=== PATIENT | male | born 1935 | race Caucasian/White ===

== ENCOUNTER 2022-01-24 17:37 | Emergency (ER) | payer OTHER, MEDICARE ==
--- NOTE | 2022-01-24 18:47 | ERPHSYRPT ---
- History of Present Illness Time Seen by Provider: 01/24/22 18:00 Source: patient Exam Limitations: no limitations Patient Subjective Stated Complaint: C/O Left groin pain, left lower leg pain, and right rib pain after a fall a little before 10am today. Triage Nursing Assessment: Patient came into the ED via wheelchair. He is alert and oriented. Patient has an indentation in his left lower outer leg that he indicates is from his fall this am. Patient's leg length is uneven; his left leg is slightly longer than his right leg. Patient indicates that the leg length difference is not new; states bilateral knee replacements are the cause of the length difference. The Left leg is externally rotated and patient yelled out in pain when nurse attempted to move patient's foot to rotate into a normal position. Pedal pulse is present. Bruising noted to BUE and BLE. Physician History: Patient is an 86-year-old male presents to our ED status post fall. Patient complains of pain to his left leg left groin and right rib. Patient states he is prone to falls due to a chronic leg length discrepancy. Patient states he fe ll at approximately 10 AM. Pain described as an ache that is localized. Left groin pain worse with logroll and abduction of his left leg. No BHT or LOC. No neck pain. Cervical spine cleared clinically. Symptoms are mild to moderate in intensity. Symptoms worsen with movement and palpation. Pain improves with rest. The fall was mechanical per patient. It was not associated with any chest pain or shortness of breath. There is no associated numbness tingling or weakness. Patient voices no other complaints or concerns at this time. Portions of this note were created with voice recognition technology. There may be grammatical, spelling, punctuation or sound alike errors Timing/Duration: today Severity: moderate Modifying Factors: Improves With: nothing Allergies/Adverse Reactions: Penicillins Allergy (Verified 01/24/22 17:52) Hx Tetanus, Diphtheria Vaccination/Date Given: Yes Hx Influenza Vaccination/Date Given: No Hx Pneumococcal Vaccination/Date Given: Yes Immunizations Up to Date: Yes Travel Risk - International Travel Have you traveled outside of the country in past 3 weeks: No - Coronavirus Screening Are you exhibiting any of the following symptoms?: No Close contact with a COVID-19 positive Pt in past 14-21 Days: No - Vaccine Status Have you recieved a Covid-19 vaccination: Yes Neon Glass Blower: Moderna - Vaccination Dates Date of 2cond Vaccination (if applicable): 2020 - Review of Systems Constitutional: No Symptoms, No Fever, No Chills Eyes: No Symptoms Ears, Nose, & Throat: No Symptoms Respiratory: No Symptoms, Other (Tenderness palpation right rib. Overlying soft tissue intact.), No Cough, No Dyspnea Cardiac: No Symptoms, No Chest Pain, No Edema, No Syncope Abdominal/Gastrointestinal: No Abdominal Pain, No Nausea, No Vomiting, No Diarrhea Genitourinary Symptoms: No Dysuria Musculoskeletal: No Back Pain, No Neck Pain Skin: No Rash Neurological: No Dizziness, No Focal Weakness, No Sensory Changes Psychological: No Symptoms Endocrine: No Symptoms All Other Systems: Reviewed and Negative - Past Medical History Pertinent Past Medical History: Yes Neurological History: No Pertinent History ENT History: Cataracts Cardiac History: Hypertension, Myocardial Infarction (RI) Respiratory History: Other Endocrine Medical History: No Pertinent History Musculoskeletal History: Arthritis, Fractures GI Medical History: Hernia Psycho-Social History: Depression Other Medical History: Hammer toe - Past Surgical History Past Surgical History: Yes Gastrointestinal: Hernia Repair Musculoskeletal: Joint Replacement, Orthopedic Surgery Other Surgical History: Skin grafts, carpal tunnel srugery, bilateral knee replacements - Social History Smoking Status: Former smoker Exposure to second hand smoke: No Drug Use: none Patient Lives Alone: No - Nursing Vital Signs Nursing Vital Signs: Initial Vital Signs Temperature 97.6 F 01/24/22 17:53 Pulse Rate 52 L 01/24/22 17:53 Respiratory Rate 18 01/24/22 17:53 Blood Pressure 124/78 01/24/22 17:53 O2 Sat by Pulse Oximetry 94 L 01/24/22 17:53 Pain Scale Pain Intensity 5 - Physical Exam General Appearance: no apparent distress, alert Eye Exam: PERRL/EOMI, eyes nml inspection Ears, Nose, Throat Exam: normal ENT inspection, TMs normal, pharynx normal, moist mucous membranes Neck Exam: normal inspection, non-tender, supple, full range of motion Respiratory Exam: normal breath sounds, lungs clear, airway intact, other (Tenderness palpation right sided ribs. Overlying soft tissue intact.), No respiratory distress Cardiovascular Exam: regular rate/rhythm, normal heart sounds, normal peripheral pulses Gastrointestinal/Abdomen Exam: soft, normal bowel sounds, other (Tenderness to palpation left groin area. No obvious deformity. The involved left lower extremity is neurovascular tact distally.), No tenderness, No mass Back Exam: normal inspection, normal range of motion, No CVA tenderness, No vertebral tenderness Extremity Exam: normal inspection, normal range of motion, pelvis stable, other (Tenderness palpation at the lateral aspect of left leg. Overlying soft tissue intact. Left lower extremity neurovascular intact distally. Compartments are soft. Cap refill less than 2 seconds.) Neurologic Exam: alert, oriented x 3, cooperative, normal mood/affect, nml cerebellar function, nml station & gait, sensation nml, No motor deficits Skin Exam: normal color, warm, dry, No rash Lymphatic Exam: No adenopathy SpO2 Interpretation: normal SpO2: 94 O2 Delivery: Room Air - Course Nursing assessment & vital signs reviewed: Yes EKG Interpreted by Me: RATE (51), Sinus Rhythm, NORMAL AXIS, NORMAL INTERVALS - Radiology Exams Lower Leg X-ray Interpretation: Interpreted by me (No fracture dislocations. Soft tissue swelling lateral mid third leg.) - CT Exams Pelvis CT Interpretation: Tele-radiologist Report (No new acute findings. Compared to CT yesterday) Chest CT Interpretation: Tele-radiologist Report (No comps. Nondisplaced acute right ninth rib fracture. Osteopenia. Old right T10 rib fracture multilevel degenerative disc disease emphysema fibrosis scarring. 6 mm indeterminate left upper lobe noncalcified nodule. Old granulomatous disease. Also old right third rib fracture. And small hiata) Ordered Tests: Active Orders 24 hr Category Date Time Status Drill Press Hand STAT Care 01/24/22 18:39 Active EKG-ER Only STAT Care 01/24/22 18:38 Active IV Insertion STAT Care 01/24/22 18:38 Active Pulse Oximetry (ED) STAT Care 01/24/22 18:38 Active CHEST WITHOUT CONTRAST [CT] Stat Exams 01/24/22 18:40 Taken LOWER LEG Stat Exams 01/24/22 18:42 Taken PELVIS WITHOUT CONTRAST [CT] Stat Exams 01/24/22 18:41 Taken BMP Stat Lab 01/24/22 22:51 Completed CBC W DIFF Stat Lab 01/24/22 19:10 Completed CMP Stat Lab 01/24/22 19:10 Completed TROPONIN Q4H Lab 01/24/22 19:10 Completed TROPONIN Q4H Lab 01/24/22 22:40 Completed TROPONIN Q4H Lab 01/25/22 02:45 Ordered UA W/RFX CULTURE Stat Lab 01/24/22 23:43 Completed Medication Summary Discontinued Medications Generic Name Dose Route Start Last Admin Trade Name Nikky PRN Reason Stop Dose Admin Acetaminophen 975 mg 01/24/22 18:45 01/24/22 19:41 Acetaminophen 325 Mg Tablet PO 01/24/22 18:46 975 mg STAT ONE Administration Acetaminophen Confirm 01/24/22 19:41 Acetaminophen 325 Mg Tablet Administered 01/24/22 19:42 Dose 975 mg .ROUTE .STK-MED ONE Sodium Chloride 1,000 mls @ 999 mls/hr 01/24/22 21:30 01/24/22 21:47 Sodium Chloride 0.9% 1000 Ml IV 01/24/22 22:30 999 mls/hr .Q1H1M STA Administration Sodium Chloride Confirm 01/24/22 21:46 Sodium Chloride 0.9% 1000 Ml Administered 01/24/22 21:47 Dose 1,000 mls @ ud .ROUTE .STK-MED ONE Lab/Rad Data: Laboratory Result Diagrams 01/24/22 19:10 01/24/22 22:51 Laboratory Results 01/24/22 01/24/22 01/24/22 Range/Units 23:43 22:51 22:40 WBC (4.0-10.5) x10^3/uL RBC (4.1-5.6) x10^6/uL Hgb (12.5-18.0) g/dL Hct (42-50) % MCV (78-100) fL MCH (26-32) pg MCHC (32-36) g/dL RDW (11.5-14.0) % Plt Count (150-450) x10^3/uL MPV (7.5-11.0) fL Gran % (36.0-66.0) % Immature Gran % (Auto) (0.00-0.4) % Nucleat RBC Rel Count (0.00-0.1) % Eos # (Auto) (0-0.5) x10^3/uL Immature Gran # (Auto) (0.00-0.03) x10^3u/L Absolute Lymphs (auto) (1.0-4.6) x10^3/uL Absolute Monos (auto) (0.0-1.3) x10^3/uL Absolute Nucleated RBC (0.00-0.01) x10^3u/L Lymphocytes % (24.0-44.0) % Monocytes % (0.0-12.0) % Eosinophils % (0.00-5.0) % Basophils % (0.0-0.4) % Absolute Granulocytes (1.4-6.9) x10^3/uL Basophils # (0-0.4) x10^3/uL Sodium 137 (137-145) mmol/L Potassium 4.6 (3.5-5.1) mmol/L Chloride 102 (98-107) mmol/L Carbon Dioxide 26 (22-30) mmol/L Anion Gap 13.8 (5-15) MEQ/L BUN 32 H (9-20) mg/dL Creatinine 1.88 H (0.66-1.25) mg/dL Estimated GFR 36.2 ML/MIN Glucose 118 H (74-106) mg/dL Calcium 8.8 (8.4-10.2) mg/dL Total Bilirubin (0.2-1.3) mg/dL AST (17-59) U/L ALT (0-50) U/L Alkaline Phosphatase (38-126) U/L Troponin I 0.016 (0.000-0.034) ng/mL Serum Total Protein (6.3-8.2) g/dL Albumin (3.5-5.0) g/dL Urinalys Dipstick Clnc MAIN LAB Urine Color YELLOW (YELLOW) Urine Appearance CLEAR (CLEAR) Urine pH 7.0 (5-6) Ur Specific [place] 1.015 (1.005-1.025) POC Urine Protein Conf 100 (Negative) Urine Ketones NEGATIVE (NEGATIVE) Urine Nitrite NEGATIVE (NEGATIVE) Urine Bilirubin NEGATIVE (NEGATIVE) Urine Urobilinogen 0.2 (0-1) mg/dL Urine Leukocytes NEGATIVE (NEGATIVE) Urine WBC (Auto) 0-2 (0-5) /HPF Urine RBC (Auto) 0-2 (0-2) /HPF U Hyaline Cast (Auto) 3-5 (0-2) /LPF Urine RBC NEGATIVE (0-5) Raman/ul Urine Mucus (Auto) SLIGHT (NEGATIVE) /HPF Ur Culture Indicated? NO Urine Glucose NEGATIVE (NEGATIVE) mg/dL 01/24/22 01/24/22 01/24/22 Range/Units 19:10 19:10 19:10 WBC 7.4 (4.0-10.5) x10^3/uL RBC 3.93 L (4.1-5.6) x10^6/uL Hgb 13.5 (12.5-18.0) g/dL Hct 40.5 L (42-50) % MCV 103.1 H (78-100) fL MCH 34.4 H (26-32) pg MCHC 33.3 (32-36) g/dL RDW 14.3 H (11.5-14.0) % Plt Count 148 L (150-450) x10^3/uL MPV 8.9 (7.5-11.0) fL Gran % 73.5 H (36.0-66.0) % Immature Gran % (Auto) 0.4 (0.00-0.4) % Nucleat RBC Rel Count 0.0 (0.00-0.1) % Eos # (Auto) 0.07 (0-0.5) x10^3/uL Immature Gran # (Auto) 0.03 (0.00-0.03) x10^3u/L Absolute Lymphs (auto) 1.00 (1.0-4.6) x10^3/uL Absolute Monos (auto) 0.85 (0.0-1.3) x10^3/uL Absolute Nucleated RBC 0.00 (0.00-0.01) x10^3u/L Lymphocytes % 13.5 L (24.0-44.0) % Monocytes % 11.4 (0.0-12.0) % Eosinophils % 0.9 (0.00-5.0) % Basophils % 0.3 (0.0-0.4) % Absolute Granulocytes 5.46 (1.4-6.9) x10^3/uL Basophils # 0.02 (0-0.4) x10^3/uL Sodium 136 L (137-145) mmol/L Potassium 5.6 H (3.5-5.1) mmol/L Chloride 99 (98-107) mmol/L Carbon Dioxide 29 (22-30) mmol/L Anion Gap 13.3 (5-15) MEQ/L BUN 33 H (9-20) mg/dL Creatinine 1.94 H (0.66-1.25) mg/dL Estimated GFR 34.9 ML/MIN Glucose 104 (74-106) mg/dL Calcium 9.3 (8.4-10.2) mg/dL Total Bilirubin 0.90 (0.2-1.3) mg/dL AST 44 (17-59) U/L ALT 27 (0-50) U/L Alkaline Phosphatase 88 (38-126) U/L Troponin I 0.015 (0.000-0.034) ng/mL Serum Total Protein 7.1 (6.3-8.2) g/dL Albumin 4.2 (3.5-5.0) g/dL Urinalys Dipstick Clnc Urine Color (YELLOW) Urine Appearance (CLEAR) Urine pH (5-6) Ur Specific [place] (1.005-1.025) POC Urine Protein Conf (Negative) Urine Ketones (NEGATIVE) Urine Nitrite (NEGATIVE) Urine Bilirubin (NEGATIVE) Urine Urobilinogen (0-1) mg/dL Urine Leukocytes (NEGATIVE) Urine WBC (Auto) (0-5) /HPF Urine RBC (Auto) (0-2) /HPF U Hyaline Cast (Auto) (0-2) /LPF Urine RBC (0-5) Raman/ul Urine Mucus (Auto) (NEGATIVE) /HPF Ur Culture Indicated? Urine Glucose (NEGATIVE) mg/dL - Progress Progress: improved Progress Note: Work-up reveals a rib fracture. Patient has pain in his left groin area. No pelvic fracture or injury observed. Likely muscle injury quite possibly a pulled groin muscle. Leg x-ray negative for fracture dislocation. There is some soft tissue swelling observed laterally. Laboratory work-up revealed abnormal creatinine. Patient states he has got chronic renal insufficiency. He does not recall what his creatinine normally runs. Patient potassium was 5.6. Patient received a liter of IV fluids. Chemistry rechecked. Potassium down to 4.6. Creatinine 1.88. Patient reassessed. He feels well. Patient is ready for discharge. Will discharge home. He agrees to follow-up with primary care doctor within 48 hours for evaluation. Portions of this note were created with voice recognition technology. There may be grammatical, spelling, punctuation or sound alike errors 01/24/22 23:31 Counseled pt/family regarding: lab results, diagnosis, rad results - Departure Departure Disposition: Home Clinical Impression: Fall, Right rib fracture, Osteopenia, Multilevel degenerative disc disease, Emphysema lung, Noncalcified lung nodule, Hiatal hernia, Chronic renal insufficiency Condition: Stable Critical Care Time: No Referrals: LAUREN DALEY [Primary Care Provider] - Follow up/PCP as directed Instructions: Chronic Obstructive Pulmonary Disease Additional Instructions: You have a left upper lobe 6 mm noncalcified lung nodule which will require f ollow-up by your primary care physician. This may need to be reimaged and or followed Discharge/Care Plan RICHARDFREEDOMRHIANNASURINDER LOWERY was seen on 01/24/22 in the Emergency Room. The patient was counseled regarding Diagnosis,Lab results, Imaging studies, need for follow up and when to return to the Emergency Room. Prescriptions given: Discharge Note I have spoken with the patient and/or caregivers. I have explained the patient's condition, diagnosis and treatment plan based on the information available to me at this time. I have answered the patient's and/or caregiver's questions and addressed any concerns. The patient and/or caregivers have as good understanding of the patient's diagnosis, condition and treatment plan as can be expected at this point. The vital signs have been stable. The patient's condition is stable and appropriate for discharge from the emergency department. The patient will pursue further outpatient evaluation with the primary care physician or other designated or consulting physician as outlined in the discharge instructions. The patient and/or caregivers are agreeable to this plan of care and follow-up instructions have been explained in detail. The patient and/or caregivers have received these instruction. The patient/and or caregivers are aware that any significant change in condition or worsening of symptoms should prompt an immediate return to this or the closest emergency department or call 911.
[2022-01-24 19:26] LABS: Absolute Neutrophil Ct (ANC) 5.46 x10^3/uL (1.4-6.9); Basophil (Absolute #) 0.02 x10^3/uL (0-0.4); Eosinophil % 0.9 % (0.00-5.0); Eosinophil (Absolute #) 0.07 x10^3/uL (0-0.5); Hematocrit 40.5 % (42-50); Hemoglobin 13.5 g/dL (12.5-18.0); Lymphocytes % 13.5 % (24.0-44.0); Mean Cell Volume 103.1 fL (78-100); Mean Corpuscular Hemoglobin 34.4 pg (26-32); Mean Corpuscular Hgb Concent. 33.3 g/dL (32-36); Mean Platelet Volume 8.9 fL (7.5-11.0); Monocyte (Absolute #) 0.85 x10^3/uL (0.0-1.3); Monocytes % 11.4 % (0.0-12.0); Neutrophil % 73.5 % (36.0-66.0); Platelet Count 148 x10^3/uL (150-450); Red Blood Count 3.93 x10^6/uL (4.1-5.6); Red Cell Distribution Width 14.3 % (11.5-14.0); White Blood Count 7.4 x10^3/uL (4.0-10.5)
[2022-01-24 19:41] LABS: ALBUMIN 4.2 g/dL (3.5-5.0); ANION GAP 13.3 MEQ/L (5-15); BILIRUBIN,TOTAL 0.9 mg/dL (0.2-1.3); Calcium 9.3 mg/dL (8.4-10.2); Creatinine 1 1.94 mg/dL (0.66-1.25); EST GLOMERULAR FILTRATION RATE 34.9 ML/MIN; Potassium 5.6 mmol/L (3.5-5.1); Total Protein 7.1 g/dL (6.3-8.2)
[2022-01-24] MEDS: TYLENOL 325 MG PO ONE (19:41)
[2022-01-24] MEDS ORDERED: TYLENOL 325 MG ONE (19:41)
[2022-01-24] MEDS ORDERED: Sodium Chloride 0.9% 1000 ML 1,000 ML ONE (21:46)
[2022-01-24] MEDS: Sodium Chloride 0.9% 1000 ML 1,000 ML IV STA (21:47)
[2022-01-24 23:07] LABS: ANION GAP 13.8 MEQ/L (5-15); Calcium 8.8 mg/dL (8.4-10.2); Creatinine 1 1.88 mg/dL (0.66-1.25); EST GLOMERULAR FILTRATION RATE 36.2 ML/MIN; Potassium 4.6 mmol/L (3.5-5.1)
[2022-01-24 23:26] VITALS: BP 112/63
[2022-01-24 23:48] LABS: Appearance CLEAR (CLEAR); Bilirubin NEGATIVE (NEGATIVE); Glucose NEGATIVE (NEGATIVE); Ketones NEGATIVE (NEGATIVE); Mucus SLIGHT /HPF (NEGATIVE); RBC 0-2 /HPF (0-2); RBC NEGATIVE Ery/ul (0-5); Specific Gravity 1.015 (1.005-1.025); WBC 0-2 /HPF (0-5)
[2022-01-24 23:49] LABS: Nitrite NEGATIVE (NEGATIVE); Protein,Urine Dip 100 (Negative); Urine Cultured Indicated? NO; Urobilinogen 0.2 mg/dL (0-1)
[2022-01-24 23:51] LABS: Dipstick done @ ? MAIN LAB
[2022-01-25 00:34] VITALS: PULSE 78; O2SAT 95
--- NOTE | 2022-01-25 08:45 | XRAY ---
Indication: Pain following fall. Comparison: None 2 view left lower leg demonstrates osteopenia, total knee arthroplasty with intact prosthesis, scattered vascular calcifications, and mild lateral soft tissue swelling. No other bony, articular, or soft tissue abnormalities.
--- NOTE | 2022-01-25 09:21 | XRAY ---
Indication: Left pelvic pain following fall. Multiple contiguous axial images obtained through the pelvis with special attention to the osseous structures. Sagittal and coronal reformatted images obtained. Comparison: One day earlier Osseous structures remain demineralized again with degenerative changes of the visualized lumbar spine/both SI joints/both hips and tiny left innominate bone island adjacent to the SI joint. No acute fracture, dislocation, or suspicious bony lesions. 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 Impression: 1. Negative acute fracture/dislocation. 2. Stable incidental chronic findings detailed above.
--- NOTE | 2022-01-25 09:25 | XRAY ---
Indication: Right lower rib pain following fall. Multiple contiguous axial images obtained through the chest without contrast. Comparison: None Osseous structures demineralized with old right 3/10 rib fractures and mild/moderate degenerative changes throughout the thoracolumbar spine. Nondisplaced acute fracture lateral arc right 9 rib. No pneumothorax/hemothorax. Lungs demonstrates pulmonary emphysema, tiny right lower lobe calcified granuloma, and bibasilar subsegmental atelectasis/scarring. Medial left upper lobe demonstrates 9 mm indeterminate noncalcified nodule. No infiltrate or consolidation. Heart is not enlarged with scattered coronary calcifications. Aorta moderately arteriosclerotic without aneurysm. Small subcarinal and right hilar calcified nodes. No pathologic mediastinal lymphadenopathy. Mild fluid distended distal esophagus presumed from gastroesophageal reflux. Limited upper abdomen reported one day earlier. Impression: 1. Acute right 9 rib fracture without pneumothorax/hemothorax. 2. Osteopenia, multilevel degenerative spondylosis, and old right 3/10 rib fractures. 3. 9 mm indeterminant left upper lobe noncalcified nodule. Finding possibly granulomatous as there is evidence for old granulomatous disease elsewhere. Consider follow-up per Fleischner guidelines. 4. Pulmonary emphysema, scattered atelectasis/scarring, arteriosclerotic disease, and GERD.
== END 2022-01-25 00:34 | disposition home or self-care (01) ==
LOC: ED 17:37
DX: S22.31XA Fracture of one rib, right side, initial encounter for closed fracture (principal); W19.XXXA Unspecified fall, initial encounter; M85.80 Other specified disorders of bone density and structure, unspecified site; M51.35 Other intervertebral disc degeneration, thoracolumbar region; J43.9 Emphysema, unspecified; R91.1 Solitary pulmonary nodule; K44.9 Diaphragmatic hernia without obstruction or gangrene; I12.9 Hypertensive chronic kidney disease with stage 1 through stage 4 chronic kidney disease, or unspecified chronic kidney disease; N18.9 Chronic kidney disease, unspecified; M79.605 Pain in left leg; R10.32 Left lower quadrant pain; R07.81 Pleurodynia
CPT/HCPCS: 36000; 36415; 71250; 72192; 73590; 80048; 80053; 81015; 84484; 85025; 93005; 93041; 94760; 99284; A9270-GY